=== PATIENT | female | born 1995 | race Caucasian/White ===

== ENCOUNTER 2021-12-01 20:41 | Emergency (ER) | payer SELFPAY ==
[~2021-12-01] VITALS: Ht 162.6 cm; Wt 72.6 kg
[2021-12-01] MEDS ORDERED: ADENOSINE 6 MG/2 ML INJ IV ONE (20:42)
[2021-12-01] MEDS ORDERED: SODIUM BICARBONATE 8.4% INJ 50ML SYRINGE IV ONE (20:42)
[2021-12-01] MEDS ORDERED: ATROPINE SULF 1 MG/10ml SYR IV ONE (20:42)
[2021-12-01] MEDS ORDERED: EPINEPHrine HCL 1 MG/10 ML SYRG IV ONE (20:42)
[2021-12-01] MEDS ORDERED: CALCIUM CHL(10%) 100MG/ML 10ML VIAL IV ONE (20:42)
[2021-12-01] MEDS ORDERED: FLUMAZENIL 0.1 MG/ML INJ 10ML MDV IV ONE (20:42)
[2021-12-01 20:49] VITALS: BP 0/0
[2021-12-01] MEDS ORDERED: ALTEPLASE (RECOMBINANT) 100 MG in STERILE WATER 100 ML IV ONE (21:15)
[2021-12-01 21:26] LABS: Basophils # (auto) 0.1 10 ^3/uL (0-0.2); Basophils % (auto) 1.5 % (0.0-2.0); Eosinophils # (auto) 0.2 10 ^3/uL (0-0.8); Eosinophils % (auto) 3.5 % (0.0-7.0); Hematocrit 34.7 % (36.0-46.0); Hemoglobin 10.9 g/dL (12.2-16.2); Lymphocytes # (auto) 3.5 10 ^3/uL (0.4-5.4); Lymphocytes % (auto) 51.8 % (10.0-50.0); Mean Corpuscular Hemoglobin 27.2 pg (28.0-32.0); Mean Corpuscular Hgb Conc. 31.3 g/dL (32.0-36.0); Mean Corpuscular Volume 86.9 fL (80.0-100.0); Monocytes # (auto) 0.5 10 ^3/uL (0-1.3); Monocytes % (auto) 7.6 % (0.0-12.0); Neutrophils # (auto) 2.4 10 ^3/uL (1.6-8.6); Neutrophils % (auto) 35.6 % (37.0-80.0); Nucleated Red Blood Cells % 0.3 %; Red Cell Distribution Width 14.2 % (11.8-14.3); White Blood Cell 6.8 10^3/uL (4.4-10.8)
[2021-12-01 21:32] LABS: Albumin 1.9 g/dL (3.4-5.0); Calcium 10.6 mg/dL (8.5-10.1)
[2021-12-01 21:36] LABS: Lactic Acid w/Reflex 12.3 mmol/L (0.4-2.0)
[2021-12-01 21:37] LABS: BUN/Creatinine Ratio 7.6; Bilirubin, Total 0.2 mg/dL (0.2-1.0); Total Protein 4.7 g/dL (6.4-8.2)
[2021-12-01 21:40] LABS: Potassium 6.5 mmol/L (3.5-5.1)
== END 2021-12-01 21:05 ==
LOC: EEVIPCON 20:41 → EDBD 20:41 → ER 20:41
DX: I46.9 Cardiac arrest, cause unspecified (principal); J45.909 Unspecified asthma, uncomplicated
CPT/HCPCS: 36415; 80053; 83605; 84484; 85025; 99285; J0153; J0171; J1265; J2997